=== PATIENT | female | born 1980 | race Caucasian/White ===

== ENCOUNTER 2021-08-31 15:36 | Outpatient (RCR) | payer BC, SELFPAY | END 2021-09-21 23:59 | LOC: NS 15:36 | DX: Z71.3 Dietary counseling and surveillance (principal); E66.9 Obesity, unspecified | CPT/HCPCS: 97802 ==

== ENCOUNTER → 2022-03-22 | Outpatient (CLI) | payer BC, SELFPAY ==
--- NOTE | 2022-03-22 11:13 | RAD_ITS ---
STUDY: X-RAY - ABDOMEN/PELVIS REASON FOR EXAM: Female, 41 years old. Pain. Evaluate for kidney stone. TECHNIQUE: Single AP view of the abdomen / pelvis onto the images. COMPARISON: None. FINDINGS: Normal visualized lung bases. There is an unremarkable bowel gas pattern. Evaluate calcifications projected over the lower pole of the left kidney which may represent nephrocalcinosis. The visualized liver, spleen and kidneys are grossly normal in size and morphology. Cholecystectomy clips. Normal visualized osseous structures. RAD/Abdomen Single View IMPRESSION: Probable left nephrocalcinosis. For confirmation, abdomen and pelvic CT recommended. Electronically Signed: Manuelito Carolina MD at 13:05 EDT ,
== END | disposition home or self-care (01) ==
PROVIDERS: PCP General Practice; Referring Provider Urology; Visit Provider Urology
DX: N20.0 Calculus of kidney (principal)
CPT/HCPCS: 74018

== ENCOUNTER 2022-05-28 07:48 | Day surgery (SDC) | payer BC, SELFPAY ==
--- NOTE | 2022-05-17 11:24 | HP.PCM_ITS ---
History and Physical Date of Admission: 05/28/22 HPI: The patient is a 41 year old female presenting for pre-operative visit. She is scheduled for hysteroscopy D&C with polyp resection , for AUB and endometrial polyps on 05/28/22. Procedure discussed along with risks, benefits and complications. Other alternatives discussed for management. Consent form signed? Yes. ? ? PAST MEDICAL HISTORY PAST MEDICAL HISTORY Diagnosis Date ? Benign essential hypertension complicating , childbirth, and the puerperium, unspecified as to episode of care ? ? Gestational hypertension ? ? Irritable bowel syndrome ? ? Kidney stone 2021 ? Thrombophlebitis 02/19/2014 ? superficial found incidentally ? ? PAST SURGICAL HISTORY PAST SURGICAL HISTORY Procedure Laterality Date ? CHOLECYSTECTOMY ? 2005 ? Cholecystectomy ? DILATION & CURETTAGE DX&/THER NONOBSTETRIC ? 2008 ? Dilation & curettage ? INSERTION OF IUD ? 11/19/2019 ? KNEE ARTHROSCOPY ? 03/2019 ? LEFT knee at [facility] ? KNEE ARTHROSCOPY/SURGERY ? 03/2011 ? right knee ? TVT DEVICE 95993 ? 09/2017 ? midurethral sling by Dr. Merritt ? ? ? CURRENT MEDICATIONS Current Outpatient Medications Medication Sig Dispense Refill ? levonorgestrel (MIRENA) 20 mcg/24 hours (7 yrs) 52 mg IUD by INTRAUTERINE route. ? ? ? L. acidophilus-L. rhamnosus 15 billion cell cap Take 1 capsule by mouth once daily. [employer]OM[employer]. If on antibiotic, take at least 1-2 hours before or after antibiotic. KEEP REFRIGERATED 30 capsule 11 ? No current facility-administered medications for this visit. ? ? ALLERGIES: Asa [Salicylates], Naproxen, and Sulfa (Sulfonamide Antibiotics) ? PERSONAL HISTORY: SOCIAL HISTORY Social History ? Tobacco Use ? Smoking status: Never ? Smokeless tobacco: Never Vaping Use ? Vaping Use: Never used Substance Use Topics ? Alcohol use: No ? Drug use: No ? FAMILY HISTORY: FAMILY HISTORY FAMILY HISTORY Problem Relation Age of Onset ? Diabetes Mother ? ? Colon Cancer Maternal Grandmother ? ? Diabetes Maternal Grandmother ? ? Diabetes Maternal Grandfather ? ? Stroke Maternal Grandfather ? ? Diabetes Paternal Grandmother ? ? Diabetes Paternal Grandfather ? ? Diabetes Brother ? ? ? REVIEW OF SYMPTOMS: GENERAL: denies fevers or chills ENDOCRINOLOGY: has not been on steroids Cardiology : denies palpitations or chest pain Respiratory: denies SOB or cough Hematology: denies history of prolonged bleeding or easy bruising or VTE Allergy: Denies history of personal or family history of allergy to anesthesia ? PHYSICAL EXAMINATION: ? VITALS: Blood pressure 138/86, pulse 80, resp. rate 16, height 5' 5 (1.651 m), weight 269 lb (122 kg), last menstrual period 03/12/2014, SpO2 97 %. ? GENERAL: The patient is well nourished, well hydrated in no acute distress. , The patient is oriented to time, place, and person. NECK: Supple. No lynphadenopathy, normal thyroid, no thyromegaly. LUNGS: Clear to auscultation bilaterally. no wheezes, rhonchi or rales HEART: Regular rate and rhythm, Normal heart sounds, and No murmurs or gallops ? IMPRESSION: endometrial/endocervical polyps, AUB ? PLAN: The risks/benefits/alternatives and personal involved for the planned hysteroscopy D&C with polyp resectoin were reviewed with the patient. Her questions were answered to her satisfaction and she desires to proceed. Consent was signed. I reviewed with her postop instructions and expectations. DESIRES TO KEEP IUD. D/w her will likely remove and reinsert it and if falls down or expels will need to replace after 6 weeks. She is comfortable w/ this as IUD was placed 2.5 yrs ago. ? I have reviewed and updated past medical and surgical history, medications and allergies Assessment & Plan Assessment/Plan (1) Abnormal uterine bleeding (AUB): (2) Endocervical polyp:
[2022-05-28] VITALS (7 sets, daily range): BP systolic 122–138; BP diastolic 69–89; PULSE 60–82; RESP 16–18; TEMP 36.5–36.7; O2SAT 96–100; BMI 44.7
--- NOTE | 2022-05-28 | EMB_PTH ---
PATIENT: LA NENA PARRY LOC: [facility] [place] U#:[id number] AGE/SX: 41/F ROOM: RE05/28/[address]: Dr. Ashley Graf MD : 1980 BED: DIS: 05/28/2022 SPEC #: [id number] RECD: 05/28/22 13:49 STATUS: AZAEL RECathleen #: [id number] ABI: 05/28/22 00:[address]: Ashley Graf DEPT: SURGICAL PATHOLOGY RECD BY: Victor Manuel Barron ENTERED: 05/28/22 13:50 SP TYPE: ENDOM BX/C OTHR DR: Dr. Emliy Austin MD Tissues: Endometrium, NOS Procedures: Surgery Specimen Level IV HEADER OPERATION: Hysteroscopy, D & C Symphion, polyp resection PRE-OP DIAGNOSIS: Abnormal uterine bleeding, endocervical polyp TISSUE SUBMITTED: Endometrial curettings, endocervical polyp MICROSCOPIC DIAGNOSIS Endometrium, curettings: Secretory endometrium. AM:ketan 05/31/2022 MICROSCOPIC DESCRIPTION Slides are reviewed. GROSS DESCRIPTION Received in fixative is one container labeled with the patient's name and designated endometrial curettings. The specimen consists of multiple irregular and mucoid fragments of light pink-ray soft tissue that in aggregate measure 2.5 x 2 x 0.2 cm. The specimen is totally submitted in one cassette. / AM:ketan 05/28/2022 TC:5 CPT: 01903
[2022-05-28 08:30] LABS: Internal QC Validated? YES +Cl - CLEAR BKGD; Pregnancy, Urine Negative Negative
[2022-05-28 08:45] LABS: Hematocrit 38.1 % (37-47); Hemoglobin 12.9 g/dL (12.0-15.0); Mean Corp Hgb Conc 33.9 g/dL (32-36); Mean Corpuscular Hgb 30.3 pg (27.0-32.0); Mean Corpuscular Volume 89.4 fL (81-99); Mean Platelet Vol. 9.6 fl (6.2-12.0); Platelet Count 267 K/mm3 (150-450); RBC Distribution Width CV 12.8 % (11.6-14.6); RBC Distribution Width SD 41.6 fl (35.1-43.9); Red Blood Count 4.26 M/mm3 (4.2-5.4); White Blood Count 8.2 K/mm3 (4.4-11.0)
[2022-05-28] MEDS: Lactated Ringers 1,000 ML 15 ML IV (08:47)
[2022-05-28] MEDS: Acetaminophen 500 MG Tablet 1000 MG PO (08:47)
--- NOTE | 2022-05-28 09:59 | DCINST_ITS ---
Discharge Instructions Diet Discharge Diet: No restrictions Activity May resume sexual activity in: 2 weeks Lifting Restrictions: none Dressing / Incision Call your doctor if your incision/area has: Sudden Increased Bleeding and Foul Smelling Discharge Call your doctor if you observe: Fever of 101 or Higher and Using more than 1 pad per hour (for 2 hrs in a row) Follow Up Care Please Follow Up With: Ashley Graf MD When: 2-4 weeks or as needed. Call [phone] to make an appointment or with any concerns. Test Results: Test results from this visit will be discussed in further detail at your follow- up appointment, if applicable. Discharge Plan Admission Primary Reason for Your Visit: D&C Attending Provider: Ashley Graf Primary Care Provider: Emily Austin Discharge Orders/Prescriptions Prescriptions: No Action NK Referrals / Follow Up: Emily Austin MD [Primary Care Provider] - Disposition Disposition (needs filled in before D/C Order can be placed): Home, Self Care
--- NOTE | 2022-05-28 09:59 | OP.PCM_ITS ---
Problems Associated Problem List Diagnoses (1) Abnormal uterine bleeding (AUB): (2) Endocervical polyp: Report of Operation Date of Procedure: 05/28/22 Pre-Operative Diagnosis: Hysteroscopy D&C Post-Operative Diagnosis: same Surgery/Procedure Performed:: hysteroscopy D&C Description of Surgical Findings:: normal cervix and vagina. Thin endometrium. Small endocervical polyp. Surgeon: Ashley Graf legal billing analyst: None Type of Anesthesia: MAC/Supplemental/Local Anesthesiologist: Jacoby Hoffmann Special Medications: none Specimen's removed: endometrial curettings and endocervical polyp Drains: none Estimated Blood Loss (mL): 10 Fluids Replaced: 700 Description of Procedure: The patient was taken to the OR where she was prepped and draped in dorsal lithotomy position. The weighted speculum was placed in the vagina and the anterior lip of the cervix was grasped with a single-tooth tenaculum. A paracervical block was administered with [1% lidocaine with 1-100,000 epinephrine solution]. The Mirena IUD was removed and set up on the sterile table. The cervix was dilated serially with Hegar dilators. The Symphion hysteroscope was placed into the uterine cavity and the above findings were noted. Bilateral tubal ostia [were] identified. The SYmphion resection device was inserted. This was then used to perform a visual D&C of the endometrial cavity and remove the endocervical polyp. A brief endocervical curettage was then done and that was placed on a Telfa and sent as part of the specimen as well. After this was completed the hysteroscope was placed back in and the endocervical polyp was gone and there were no other focal abnormalities in the endometrium. The Mirena IUD was reinserted and settled at the fundus. The instruments were removed from the vagina. The specimen was handed off and sent to pathology. All sponge and needle counts were correct. Vaginal sweep was performed by me. The patient was awakened and taken to the recovery room in stable condition. Calculated hysteroscopic fluid deficit is 500 cc of normal saline Grafts/Implants Used: none Procedure Start Time: :07 Procedure Stop Time: 10:14 Complications none Admit VTE Documentation VTE Present on Admission: No VTE Mechan Device Prophylaxis: SCD's VTE Pharm Prophylaxis ordered?: No Reason prophylaxis not ordered:: Procedure Not Indicated
[2022-05-28] MEDS: Lidocaine 1% /Epi 1:100 (20ml) 20 ML Vial (10:07)
[2022-05-28] MEDS: oxyCODONE 5 MG Tablet PO (11:07)
== END 2022-05-28 13:59 | disposition home or self-care (01) ==
LOC: SDC 07:52 → AC 08:08
PROVIDERS: PCP General Practice; Visit Provider Obstetrics & Gynecology
PROC: 0UB98ZZ Excision of Uterus, Via Natural or Artificial Opening Endoscopic (ICD-10-PCS; CPT 58558; principal; 2022-05-28 09:00)
DX: N84.1 Polyp of cervix uteri (principal); N93.9 Abnormal uterine and vaginal bleeding, unspecified; K58.9 Irritable bowel syndrome, unspecified
CPT/HCPCS: 58558; 58300; 58301; 81025; 85027; 88305; J7120; J2405

== ENCOUNTER → 2022-10-04 | Outpatient (CLI) | payer BC, SELFPAY ==
--- NOTE | 2022-10-04 08:52 | RAD_ITS ---
STUDY: X-RAY - ABDOMEN/PELVIS REASON FOR EXAM: Female, 42 years old. Renal calculi. TECHNIQUE: Single AP view of the abdomen / pelvis on 2 images. COMPARISON: March 22, 2022. FINDINGS: Normal visualized lung bases. There is an unremarkable bowel gas pattern. There is no demonstrated free abdominal air. Several low-density calcifications projected over the left renal shadow unchanged from prior study. Stable cholecystectomy clips. Normal visualized osseous structures. RAD/Abdomen Single View IMPRESSION: Subtle calcifications projected over the left kidney, unchanged. No acute abnormality. Electronically Signed: Manuelito Carolina, at 11:29 EST ,
== END | disposition home or self-care (01) ==
PROVIDERS: PCP General Practice; Referring Provider Urology; Visit Provider Urology
DX: N20.0 Calculus of kidney (principal)
CPT/HCPCS: 74018

== ENCOUNTER → 2023-01-26 | Outpatient (CLI) | payer BC, SELFPAY ==
[2023-01-26 22:03] LABS: Absolute Lymphocyte Count 3.05 X10^3/uL (0.83-4.51); Absolute Neutrophil Count 6.5 X10^3/uL (2.0-7.7); Basophil# 0.08 X10^3/uL; Basophil% 0.8 % (0-1); Eosinophil# 0.41 X10^3/uL; Eosinophils% 3.9 % (0-5); Hematocrit 41.2 % (37-47); Hemoglobin 13.5 g/dL (12.0-15.0); Lymphocyte # 3.05 X10^3/ul (0.83-4.51); Lymphocyte % 28.8 % (19-41); Mean Corp Hgb Conc 32.8 g/dL (32-36); Mean Corpuscular Hgb 29.3 pg (27.0-32.0); Mean Corpuscular Volume 89.4 fL (81-99); Monocyte# 0.57 X10^3/uL; Monocyte% 5.4 % (0-10); NRBC Flagged by Analyzer 0 % (0-5); Neutrophil # 6.46 X10^3/uL (2.7-7.7); Neutrophil % 60.9 % (47-70); Platelet Count 328 K/mm3 (150-450); RBC Distribution Width CV 12.7 % (11.6-14.6); RBC Distribution Width SD 41.4 fl (35.1-43.9); Red Blood Count 4.61 M/mm3 (4.2-5.4); Vitamin B12 340 pg/mL (211-911); White Blood Count 10.6 K/mm3 (4.4-11.0)
[2023-01-26 22:10] LABS: ALB/GLOB Ratio 0.8 RATIO (0.9-2.4); AST(SGOT) 16 U/L (15-37); Alanine Aminotransfer ALT/SGPT 36 U/L (13-56); Albumin, Serum 3.9 g/dL (3.2-5.0); Alkaline Phosphatase 73 U/L (45-117); Anion Gap 6 (5-15); BUN 14 mg/dL (7-18); BUN/Creat Ratio 18.6 RATIO (10-20); Calcium,Total 8.7 mg/dL (8.5-10.1); Chloride 106 mmol/L (98-107); Cholesterol 180 mg/dL (200); Creatinine, Serum 0.75 mg/dL (0.55-1.02); EST Glomerular Filtration Rate 89 mL/min (>60); Est Glom Filt Rate - Afr Amer 108 mL/min (>60); Globulin 4.6 g/dL (2.2-4.2); Glucose 125 mg/dL (74-106); High Density Lipoprotein 47 mg/dL; Potassium 3.8 mmol/L (3.5-5.1); Protein, Total 8.5 g/dL (6.4-8.2); Sodium Level 139 mmol/L (136-145); T4 Free Direct 0.97 ng/dL (0.76-1.46); Thyroid Stim Hormone (TSH) 1.13 uIU/mL (0.358-3.74); Triglycerides 191 mg/dL; Very Low Density Lipoprotein 38 mg/dL (5-40)
[2023-01-28 13:08] LABS: EBV Acute VCA IgM < 36.0 U/mL (0.0-35.9); EBV Nuclear Antigen IgG > 600.0 U/mL (0.0-17.9)
== END | disposition home or self-care (01) ==
PROVIDERS: Visit Provider Nurse Practitioner
DX: R73.9 Hyperglycemia, unspecified (principal); R63.5 Abnormal weight gain; R53.83 Other fatigue; K57.32 Diverticulitis of large intestine without perforation or abscess without bleeding
CPT/HCPCS: 80053; 80061; 82607; 82652; 84439; 84443; 85025; 86664; 86665